=== PATIENT | male | born 1970 | race Caucasian/White ===

== ENCOUNTER 2018-02-17 11:23 | Emergency (ER) | payer SELFPAY ==
--- OUTSIDE RECORDS SUMMARY | 2018-02-17 11:27 | XMS REPORT | Continuity of Care Document ---
:1970 External Reference #:[id number] Author Name John Paul Evans Care Team Providers Name Role Phone Timoteo Mcdonough PA Care Team Information Chauffeur Unavailable Anne King MD Primary Care Physician Unavailable Payers Type Date Identification Numbers Payment Provider Subscriber Effective: Policy Number: [id number] [employer] Kesha Leiva 2011 PayID: [id number] [address] [address] [place] [id number] Advance Directives Description No Information Available Problems Date Description Provider Status Onset: 03/23/2015 Cluster headache Jesi Nicole M.D. Active Family History Description No Information Available Social History Type Date Description Comments Sex Unknown ETOH Use Occasionally consumes alcohol Tobacco Use Start: Unknown Patient has never smoked Smoking Status Reviewed: 01/22/18 Patient has never smoked Allergies, Adverse Reactions, Alerts Description No Known Drug Allergies Medications Medication Date Status Form Strength Qnty SIG Indications Ordering Provider Prednisone 01/22/ Active Tablets 20mg 30tabs 4 tabs for G44.019 2017 3 days then [place], 3 tabs for M.D. 3 days then 2 tab for 3 days then 1 tab for 3 days Topiramate 01/22/ Active Tablets 25mg 120tab 1 qhs for 1 G44.019 2017 s week then 2 [place], qhs for 1 M.D. week then 3 qhs for 1 week then 4 qhs Imitrex 09/23/ Active Solution 6mg/0.5ML 12unit 1 injection 2013 as needed jorden Yang M.D. headache. may repeat x1 after 2 hours, maximum 2 in 24 hours. maximum 2 days per week Prednisone 09/23/ Hx Tablets 10mg 36tabs 3 tabs po G44.001 2013 - bid x 2 Trey, 08/03/ days; 2 M.D. 2016 tabs bid x 2 days; 3 tabs daily in 2 divided doses x 2 days; 1 tab bid x 2 days; 1/2 tab bid Topiramate 09/23/ Hx Tablets 50mg 30tabs 1 by mouth 339.00 Jesi Cadena 2013 - every night Corey, 10/10/ at bedtime M.Michelle 2013 Topamax / Hx Tablets 25mg 60tabs 2 tabs po Santos S. 0000 - qhs as Trey, M.Michelle 2017 Imitrex / Hx sq prn Unknown Solution 0000 - 2013 Advil / Hx Capsules 200mg 200cap 3 caps po Unknown 0000 - s as needed 2016 Acetaminophen / Hx Tablets 325mg 100tab 3 by mouth Unknown 0000 - s prn 2014 Immunizations Description No Information Available Vital Signs Date Vital Result Comment 01/22/2018 3:28pm Height 75 inches 6'3" Weight 195.00 lb Heart Rate 80 /min BP Systolic 132 mmHg BP Diastolic 82 mmHg BMI (Body Mass Index) 24.4 kg/m2 08/03/2016 3:29pm Height 75 inches 6'3" Weight 190.00 lb Heart Rate 84 /min BP Systolic Sitting 110 mmHg BP Diastolic Sitting 70 mmHg Respiratory Rate 12 /min BMI (Body Mass Index) 23.7 kg/m2 03/23/2015 11:11am Height 75 inches 6'3" Weight 195.00 lb Heart Rate 68 /min BP Systolic Sitting 136 mmHg BP Diastolic Sitting 86 mmHg Respiratory Rate 14 /min BMI (Body Mass Index) 24.4 kg/m2 09/23/2013 10:17am Height 75 inches 6'3" Weight 203.00 lb Heart Rate 68 /min BP Systolic Sitting 110 mmHg BP Diastolic Sitting 78 mmHg Respiratory Rate 16 /min BMI (Body Mass Index) 25.4 kg/m2 Results Description No Information Available Procedures Description No Information Available Encounters Type Date Location Provider Dx Diagnosis Office Visit 08/03/2016 Izaiah Cadena G44.009 Cluster headache 3:30p [facility] M.[facility] syndrome, unspecified, not intractable Office Visit 03/23/2015 Izaiah Cadena G44.009 Cluster headache 11:15a [facility] M[facility] syndrome, unspecified, not intractable Office Visit 09/23/2013 [facility] Jesi Cadena 339.00 Cluster Headache 10:15a [facility] M[facility] Syndrome, Unspecified Office Visit 10/26/2011 [facility] Jesi Cadena 339.00 Cluster Headache 3:00p [facility] M.[facility] Syndrome, Unspecified Plan of Treatment Future Appointment(s):03/11/2018 8:30 am - Santos Yang M.D. at [facility]01/22/2018 - Santos Yang M.D.G44.019 Episodic cluster headache, not intractableNew Medication:Prednisone 20 mg - 4 tabs for 3 days then 3 tabs for 3 days then 2 tab for 3 days then 1 tab for 3 daysTopiramate 25 mg - 1 qhs for 1 week then 2 qhs for 1 week then 3 qhs for 1 week then 4 qhsFollow up:1-2 months
[2018-02-17] MEDS ORDERED: Tetan/Diph/Pertus SYR(Tdap)* 0.5 ML SYR(BOOSTRIX) use SYR IM ONE (12:36)
[2018-02-17] MEDS ORDERED: Bupivacaine 0.25% SDV PF* 10 ML VIAL INJ ONE (12:36)
[2018-02-17] MEDS ORDERED: Lidocaine/Epineph/Tetraca SOL* (LET solution) 4 ML BTL TOPICAL ONE (12:36)
--- NOTE | 2018-02-17 12:36 | ED ---
Complex/Multi-Sys Presentation - HPI Summary HPI Summary: Patient presents with facial injury prior to arrival. He was stretching on a wooden bench when the bench gave way and a piece of the bench forcefully shifted up and struck him in the face. He is bleeding from his upper lip which reveals a laceration that has gone through to his inner mouth. He also has swelling of his upper jaw/gingiva midline and pain with opening and closing his mouth. Additionally he had bleeding from nose. He denies loss of consciousness , headache, change in vision, numbness, tingling, weakness, neck pain, vomiting. He does have intermittent nausea - may have swallowed some blood. Teeth are not loose however they are tender to touch. He also reports earlier in the run he injured his left knee by minor abrasion. He is able to ambulate and has full range of motion without pain or difficulty. He is unsure of his last tetanus vaccine would like this boosted today. Pain is 2 out of 10. Denies use of anticoagulants and no other medical issues or medications. - History Of Current Complaint Chief Complaint: UCLaceration Time Seen by Provider: 02/17/18 12:26 Hx Obtained From: Patient, Family/Gambling Monitor - - Allergies/Home Medications Allergies/Adverse Reactions: Allergies Allergy/AdvReac Type Severity Reaction Status Date / Time No Known Allergies Allergy Verified 08/10/13 10:47 Home Medications: Home Medications NK [No Home Medications Reported] 02/17/18 [History Confirmed 02/17/18] PMH/Surg Hx/FS Hx/Imm Hx Previously Healthy: Yes Endocrine/Hematology History: Denies: Hx Anticoagulant Therapy, Hx Blood Disorders, Hx Diabetes, Hx Thyroid Disease, Autoimmune Disease Cardiovascular History: Denies: Hx Hypertension Respiratory History: Denies: Hx Asthma, Hx Chronic Obstructive Pulmonary Disease (COPD) GI History: Denies: Hx Ulcer - Immunization History Immunizations Up to Date: Unable to Obtain/Confirm - unsure of last tetanus Infectious Disease History: No Infectious Disease History: Denies: Hx Hepatitis, Hx Human Immunodeficiency Virus (HIV), Traveled Outside the [place] in Last 30 Days - Social History Lives: With Family Alcohol Use: Occasionally Hx Substance Use: No Substance Use Type: Reports: None Hx Tobacco Use: No Smoking Status (MU): Never Smoked Tobacco Review of Systems Constitutional: Negative Negative: Fever, Chills, Fatigue Eyes: Negative Negative: Photophobia, Blurred Vision, Diplopia Positive: Dental Pain, Other - upper jaw pain, sinus pain. Negative: Sore Throat, Ear Ache, Nasal Discharge Cardiovascular: Negative Respiratory: Negative Positive: Nausea. Negative: Abdominal Pain, Vomiting, Diarrhea Positive: no symptoms reported Musculoskeletal: Negative Skin: Other - facial and Lt knee abrasion Neurological: Negative Psychological: Normal All Other Systems Reviewed And Are Negative: Yes Physical Exam Triage Information Reviewed: Yes Vital Signs On Initial Exam: Initial Vitals Temp Pulse Resp BP Pulse Ox 98.3 F 76 16 124/79 98 02/17/18 11:26 02/17/18 11:26 02/17/18 11:26 02/17/18 11:26 02/17/18 11:26 Vital Signs Reviewed: Yes Appearance: Positive: Well-Nourished, Pain Distress - appears mildly fatigued - minimal discomfort with ice on face Skin: Positive: Warm - upper lip with central stellate wound (through and through) - bleeding controlled; Lt knee with superficial linear abrasions, mostly scabbed - no active bleeding, Skin Color Reflects Adequate Perfusion Eyes: Positive: Normal, EOMI, KARINA - no photophobia, Conjunctiva Clear ENT: Positive: Normal ENT inspection, Hearing grossly normal, Pharynx normal - patent - no posterior pharynx bleeding observed, TMs normal - no hemotympanum, Dental tenderness - front teeth are TTP - no sandy laxity appreciated. Negative : Nasal congestion - no hematoma observed however he has crusted blood in B/L nares and possible internal laceration along base of Left septal wall Dental: Negative: Dental Fracture @ Neck: Positive: Supple, Nontender Respiratory/Lung Sounds: Positive: Breath Sounds Present. Negative: Stridor Cardiovascular: Positive: Normal Musculoskeletal: Positive: Normal, Strength/ROM Intact Neurological: Positive: Normal, Sensory/Motor Intact, Alert, Oriented to Person Place, Time, CN Intact II-III Psychiatric: Positive: Normal - relaxed, calm, cooperative - Lupe Coma Scale Best Eye Response: 4 - Spontaneous Best Motor Response: 6 - Obeys Commands Best Verbal Response: 5 - Oriented Coma Scale Total: 15 Diagnostics - Vital Signs Vital Signs Temp Pulse Resp BP Pulse Ox 02/17/18 11:26 98.3 F 76 16 124/79 98 - Laboratory Lab Statement: Any lab studies that have been ordered have been reviewed, and results considered in the medical decision making process. Complex Multi-Symp Course/Dx Course Of Treatment: Applied LET solution via gauze to upper lip and attempted XR imaging of facial bones as we do not have CT capability here today. XR tech and pt report near syncope while in XR - pt was seated at the time and reported dizziness, tunnel vision and diaphoresis with increased nausea. Imaging was stopped and he was wheeled back to room. Feels better lying on stretcher - vitals reassessed and stable. ECG reveals 63 bpm, NSR, and no blocks nor ST elevations (early repolarization in multiple leads - read by myself and Dr. Marcus). Discussed that near syncope could be from injury/hemorrhage which is still pending adequate evaluation and CT is test of choice however we opted to perform a preliminary XR here as he was stable at first appearance and recheck of vitals/neuro eval are stable. Other potential reasons for near syncope could be exhaustion as he came here after running and has not eaten/drank. Could also be a reaction to LET which he will need more of to close his wound. At this point in care, explained his sx and injury are advanced beyond our capabilities here at the Urgent Care. Called [facility] who does not have facial trauma services available today and so we recommend [facility] to address his issues. Pt's face and knee were superficially cleaned and covered and he was sent to [facility] via private car (declined ambulance - friend will drive him). Stable vitals and neurologically intact at time of d/c - he is aware of risks of taking private vehicle vs. ambulance w/ EMS. CD of XR and note also sent with patient. Spoke w/ Dr. Mendieta who is aware of case. - Diagnoses Provider Diagnoses: Facial trauma, Laceration of upper lip, complicated, Near syncope, Superficial abrasion Discharge - Sign-Out/Discharge Documenting (check all that apply): Patient Departure All imaging exams completed and their final reports reviewed: Yes - Discharge Plan Condition: Stable Disposition: HOME-RECOMMEND TO ED Additional Instructions: You have sustained a facial injury and near-syncope requiring higher level of care. You will need CT imaging to better assess your facial injury and closure of your facial laceration. With a near syncopal event of unknown cause, it is safer for further work-up and repair to take place in an ED vs. here at Urgent Care. Your CD disc of your 1 view facial XR have been sent with you - unfortunately we were unable to attain more images, but again, CT is test of choice given your upper lip, nose and sinus conditions. Go directly to [facility] ED for evaluation. It was recommended that you go by ambulance but you have declined and will go as a passenger with a friend by private vehicle. Do not eat or drink before being evaluated by medical staff at [facility]. If you have difficulty breathing or swallowing, chest pain, shortness of breath or pass out, your friend may opt to call an ambulance while en route. - Billing Disposition and Condition Condition: STABLE Disposition: Home-Recommend to ED
[2018-02-17] MEDS ORDERED: Lidocain 1% EPI 1:100,000 * 30 ML MDV INJ ONE (13:01)
[2018-02-17 13:23] VITALS: BP 124/75
== END 2018-02-17 14:20 | disposition home health service (06) ==
LOC: UCEAST 11:23
DX: S01.511A Laceration without foreign body of lip, initial encounter (principal); S80.212A Abrasion, left knee, initial encounter; R55 Syncope and collapse; H53.489 Generalized contraction of visual field, unspecified eye; R61 Generalized hyperhidrosis; W22.8XXA Striking against or struck by other objects, initial encounter; Y92.9 Unspecified place or not applicable
CPT/HCPCS: 70140; 90471; 90715; 93005; 99202; G0463; J3490